=== PATIENT | female | born 1970 | race Caucasian/White ===

== ENCOUNTER → 2016-09-15 | Outpatient (CLI) | payer OTHER | LOC: MMPC 11:11 | PROVIDERS: ATTEND Internal Medicine | DX: H40.9 Unspecified glaucoma (principal); H54.8 Legal blindness, as defined in USA; R26.9 Unspecified abnormalities of gait and mobility; E66.3 Overweight; R20.2 Paresthesia of skin; Z90.5 Acquired absence of kidney | CPT/HCPCS: 99213; G0463 ==

== ENCOUNTER → 2016-11-05 | Outpatient (CLI) | payer OTHER | LOC: MMPC 11:11 | PROVIDERS: ATTEND Internal Medicine | DX: H40.9 Unspecified glaucoma (principal); H54.8 Legal blindness, as defined in USA; E66.3 Overweight; Z90.5 Acquired absence of kidney | CPT/HCPCS: 99213; G0463 ==

== ENCOUNTER → 2016-12-01 | Outpatient (CLI) | payer OTHER ==
[2016-12-01 16:26] LABS: HEMOGLOBIN 14.5 g/dL (12.0-16.0); RED BLOOD COUNT 4.72 10^6/uL (4.20-5.40)
[2016-12-01 16:27] LABS: BASOPHILS # (AUTO) 0.04 10*3/UL; BASOPHILS % (AUTO) 0.3 % (0-1); EOSINOPHILS # (AUTO) 0.13 10*3/UL; HEMATOCRIT 42.8 % (37.0-47.0); LYMPHOCYTES # (AUTO) 2.07 10*3/uL; MEAN CORPUSCULAR HEMOGLOBIN 30.7 PG (27-31); MEAN CORPUSCULAR HGB CONC 33.9 g/dL (33-37); MEAN CORPUSCULAR VOLUME 90.7 FL (81-99); MEAN PLATELET VOLUME 9.7 FL (7.4-12.2); MONOCYTES # (AUTO) 0.61 10*3/UL (0.3-0.8); MONOCYTES % (AUTO) 4.7 % (5-15); NEUTROPHILS # (AUTO) 10.04 10*3/UL; NEUTROPHILS % (AUTO) 77.8 % (50-80); PLATELET MORPHOLOGY COMMENT NORMAL MORPHOLOGY (NORM); RBC MORPHOLOGY COMMENT NORMAL MORPHOLOGY (NORM); WBC MORPHOLOGY COMMENT NORMAL MORPHOLOGY (NORM)
--- NOTE | 2016-12-02 06:32 | DI ---
XR SINUS PARANASAL CPT MIN 3VW,12/01/2016 3:13 PM: Clinical History: Maxillary pain Previous Exam: None at this facility. Findings: 5 views of the face are obtained, and demonstrate anatomic alignment without visible fracture. The prevertebral soft tissues are unremarkable. Vertebral body height is preserved. Mild degenerative endplate changes are noted. The paranasal sinuses are unremarkable. Impression: Mild diffuse degenerative changes of the cervical spine. No facial fractures.
== END ==
LOC: MOB LAB 15:00
PROVIDERS: ATTEND Internal Medicine
DX: R68.84 Jaw pain (principal); R30.0 Dysuria
CPT/HCPCS: 36415; 70220; 85025; 85652